=== PATIENT | male | born 1965 | race Caucasian/White ===

== ENCOUNTER 2019-04-01 22:19 | Emergency (ER) | payer MEDICAID ==
[~2019-04-01] VITALS: Ht 190.5 cm; Wt 92.0 kg
[2019-04-01 22:20] VITALS: BP 172/92
[2019-04-01] MEDS ORDERED: ASPI-496 PO (22:24)
[2019-04-01] MEDS ORDERED: OXYcodone/APAP 5/325MG TABLET PO ONE (22:30)
[2019-04-01] MEDS ORDERED: KETOROLAC 30 MG/1 ML IM ONE (22:30)
[2019-04-01] MEDS ORDERED: KETOROLAC 60 MG/2 ML ONE (22:40)
[2019-04-01] MEDS ORDERED: OXYcodone/APAP 5/325MG TABLET ONE (22:40)
[2019-04-01] MEDS ORDERED: CYCLOBENZAPRINE 10 MG TABLET ONE (23:40)
[2019-04-02] MEDS ORDERED: CYCLOBENZAPRINE 10 MG TABLET PO PRN
== END 2019-04-02 00:09 | disposition home or self-care (01) ==
LOC: EDBD 22:19 → ED 23:57 → MERGE 23:57 → ED 04-02 00:09
DX: S39.012A Strain of muscle, fascia and tendon of lower back, initial encounter (principal); F17.200 Nicotine dependence, unspecified, uncomplicated; V00.131A Fall from skateboard, initial encounter; Y93.51 Activity, roller skating (inline) and skateboarding; Y92.89 Other specified places as the place of occurrence of the external cause; Y99.8 Other external cause status
CPT/HCPCS: 96372; 99283; J1885

== ENCOUNTER 2019-04-02 17:11 | Emergency (ER) | payer MEDICAID ==
[~2019-04-02] VITALS: Ht 188 cm; Wt 90.0 kg
[~2019-04-02 17:11] MED LIST: ASPI-496 PO
--- NOTE | 2019-04-02 17:21 | NUR ---
Pt bib [facility] for R hip pain s/p fall off of skateboard today. Denies other injuries. Pain 07/12-medicated with 100mcg IM fetanyl by EMS. No shortening or rotation noted of RLE. CMS intact. Placed on continuous pulse ox.
--- NOTE | 2019-04-02 17:38 | NUR ---
pt to xray
[2019-04-02 18:13] VITALS: BP 146/102
--- NOTE | 2019-04-02 18:14 | NUR ---
BREAK RN: PT RESTING IN [facility] WITH FALL PRECAUTIONS IN PLACE. NAD. [place].
--- NOTE | 2019-04-02 18:41 | NUR ---
Patient/Caregiver given discharge instructions and they have confirmed that they understand the instructions. Patient ambulatory with steady gait.
--- NOTE | 2019-04-02 19:28 | NUR ---
PT NOW STATING HE CANNOT WALK. ER PROVIDER IN TO RE-EVALUATE. PT STATES "I'M CALLING THE NEWS TO GET THEM DOWN HERE WITH A FUCGrownOut CAMERA TO SEE WHAT YOU ARE DOING TO ME. WHAT KIND OF FUCKING DOCTOR WAS THAT?". PT UNCOOPERATIVE, INITIALLY REFUSING TO GET UP TO ATTEMPT AMBULATION. SECURITY BROUGHT TO BEDSIDE, STATES HAS PAIN WITH AMBULATION. WALKER PROVIDED, PT AMBULATES WELL WITH WALKER. CONTINUES TO STATE "I'M CALLING THE NEWS. WHAT KIND OF TREATMENT IS THIS? I KNOW YOU CAN DO FUCKING TESTING FOR THE SCIATICA, WHY DON'T YOU DO THE FUCKING TESTING?" WHEN DISCUSSING TAXI VOUCHER, PT STATES "I'M CALLING A [facility] TO GO TO THE OTHER HOSPITAL." TAXI VOUCHER DISCONTINUED AND PT ESCORTED OUT VIA WHEELCHAIR (PER HIS REQUEST) WITH SECURITY.
--- NOTE | 2019-04-02 19:29 | NUR ---
rn entered room to pt still there after being discharged, pt yelling at rn "you haven't done anyting for my pain, fuck you, fuck this place, my siatica needs attention", rn asked pt what he would like done. Pt stated "fuck you, I will call the governor and the media, they're my friends, I'll shani you for malpractice you motherfuckers, I'm from [place]". PA notified and break rn who discharged pt notified, PA at bedside and pt continued to state to PA, "you're all mother fuckers, fuck you". Requested security by extension service specialist in charge as pt increasingly agitated. Pt stated he could not walk. Walker provided to patient and RN and extension service specialist in charge alvino witness pt ambulate steadily with walker. Pt escorted outside with security.
== END 2019-04-02 19:34 | disposition home or self-care (01) ==
LOC: MERGE 17:11 → ED 19:28
DX: M54.41 Lumbago with sciatica, right side (principal); M25.551 Pain in right hip; F17.200 Nicotine dependence, unspecified, uncomplicated
CPT/HCPCS: 72110; 99283

== ENCOUNTER 2019-04-02 19:45 | Emergency (ER) | payer MEDICAID, SELFPAY ==
[~2019-04-02] VITALS: Ht 175.3 cm; Wt 78.0 kg
[2019-04-02 20:00] VITALS: BP 121/69
== END 2019-04-02 20:17 | disposition left against medical advice (07) ==
LOC: ED 20:11
DX: M54.9 Dorsalgia, unspecified (principal); Z53.21 Procedure and treatment not carried out due to patient leaving prior to being seen by health care provider